=== PATIENT | female | born 1965 | race Caucasian/White ===

== ENCOUNTER → 2017-10-27 | Day surgery (SDC) | payer BC, OTHER ==
[~2017-10-27] MED LIST: LIDOCAINE 1% PF 2 ML VIAL. ID; LIDOCAINE 2% PF Vial for OR 5 ML VIAL.; MORPHINE SULFATE 4 MG/ML DISP.SYRIN. IV; ONDANSETRON PF 4 MG/2 ML VIAL. IV; PROCHLORPERAZINE 10 MG/2 ML VIAL. IV; PROPOFOL 40 ML IV; fentaNYL PF VIAL 100 MCG/2 ML VIAL IV
[2017-10-27] MEDS: IV RINGERS,LACTATED 1000ML 1,000 ML IV (12:00)
== END ==
LOC: SURG 11:28
DX: Z12.11 Encounter for screening for malignant neoplasm of colon (principal); K64.0 First degree hemorrhoids; Z82.49 Family history of ischemic heart disease and other diseases of the circulatory system; Z80.8 Family history of malignant neoplasm of other organs or systems; Z83.71 Family history of colonic polyps
CPT/HCPCS: 45378; J2704